=== PATIENT | male | born 1990 | race Caucasian/White ===

== ENCOUNTER 2021-03-04 15:41 | Emergency (ER) | payer OTHER ==
[~2021-03-04] VITALS: Ht 170.2 cm; Wt 69.2 kg
[2021-03-04 15:56] VITALS: BP 132/65
--- NOTE | 2021-03-04 16:03 | PHYS DOC ---
Past History Past Surgical History: No Surgical History Alcohol Use: None General Adult EDM: Chief Complaint: LACERATION/AVULSION HPI: HPI: 30-year-old male presents with a laceration of the right forearm. He got a small laceration from a piece of metal at work. His employer sent him here for evaluation and repair if necessary. This patient's tetanus shot was in 2018. He has no other complaints this time. Review of Systems: Review of Systems: Constitutional: Denies fever or chills Eyes: Denies change in visual acuity HENT: Denies nasal congestion or sore throat Respiratory: Denies cough or shortness of breath Cardiovascular: Denies chest pain or edema GI: Denies abdominal pain, nausea, vomiting, bloody stools or diarrhea : Denies dysuria Musculoskeletal: Denies back pain or joint pain Integument: Laceration right forearm Neurologic: Denies headache, focal weakness or sensory changes Endocrine: Denies polyuria or polydipsia Lymphatic: Denies swollen glands Psychiatric: Denies depression or anxiety Physical Exam: PE: Constitutional: Well developed, well nourished, no acute distress, non-toxic appearance. [] HENT: Normocephalic, atraumatic, bilateral external ears normal, oropharynx moist, no oral exudates, nose normal. [] Eyes: PERRLA, EOMI, conjunctiva normal, no discharge. [] Neck: Normal range of motion, no tenderness, supple, no stridor. [] Cardiovascular:Heart rate regular rhythm, no murmur [] Lungs & Thorax: Bilateral breath sounds clear to auscultation [] Abdomen: Bowel sounds normal, soft, no tenderness, no masses, no pulsatile masses. [] Skin: 1 cm laceration of the right forearm [] Back: No tenderness, no CVA tenderness. [] Extremities: No tenderness, no cyanosis, no clubbing, ROM intact, no edema. [] Neurologic: Alert and oriented X 3, normal motor function, normal sensory function, no focal deficits noted. [] Psychologic: Affect normal, judgement normal, mood normal. [] Current Patient Data: Vital Signs: Vital Signs Date Time Temp Pulse Resp B/P (MAP) Pulse Ox O2 Delivery O2 Flow Rate FiO2 03/04/21 15:56 66 18 132/65 99 EKG: EKG: [] Radiology/Procedures: Radiology/Procedures: [] Heart Score: C/O Chest Pain: N/A Risk Factors: Risk Factors: DM, Current or recent (<one month) smoker, HTN, HLP, family hist ory of CAD, obesity. Risk Scores: Score 0 - 3: 2.5% MACE over next 6 weeks - Discharge Home Score 4 - 6: 20.3% MACE over next 6 weeks - Admit for Clinical Observation Score 7 - 10: 72.7% MACE over next 6 weeks - Early Invasive Strategies Course & Med Decision Making: Course & Med Decision Making Pertinent Labs and Imaging studies reviewed. (See chart for details) [] Dragon Disclaimer: Dragon Disclaimer: This electronic medical record was generated, in whole or in part, using a voice recognition dictation system. Laceration Repair Lac Repair Indication: [] 1 cm linear laceration of the right forearm Procedure: I obtained verbal consent from the patient for tissue adhesive repair of his right forearm laceration. The wound was thoroughly cleansed with saline. No foreign bodies were found. No anesthesia was used. I placed 2 layers of Dermabond skin adhesive over the wound. There was good skin approximation. Bleeding was controlled. No dressing was applied. Total repaired wound length: 1 cm. Other Items: None The patient tolerated the procedure none. Complications: None. Departure Departure: Impression: Primary Impression: Laceration of right forearm Qualified Codes: S51.811A - Laceration without foreign body of right forearm, initial encounter Disposition: HOME / SELF CARE / HOMELESS Condition: IMPROVED Referrals: PCPJUANCARLOS (PCP) Patient Instructions: Tissue Adhesive Wound Care, [id number] NAHID ZAPATA DO Mar 04, 2021 16:03
== END 2021-03-04 16:15 | disposition home or self-care (01) ==
LOC: ER 15:41
DX: S51.811A Laceration without foreign body of right forearm, initial encounter (principal); X58.XXXA Exposure to other specified factors, initial encounter; Y93.89 Activity, other specified; Y92.89 Other specified places as the place of occurrence of the external cause; Y99.8 Other external cause status
CPT/HCPCS: 12001; 99282-25